=== PATIENT | male | born 1965 | race Caucasian/White ===

== ENCOUNTER → 2018-04-19 | Outpatient (CLI) | payer OTHER | LOC: RAD 14:01 | DX: E04.2 Nontoxic multinodular goiter (principal) ==

== ENCOUNTER 2020-07-11 13:03 | Outpatient (RCR) | payer MEDICAID | END 2020-10-09 | disposition still patient (30) | LOC: PT | DX: S83.241D Other tear of medial meniscus, current injury, right knee, subsequent encounter (principal) ==

== ENCOUNTER → 2020-11-12 | Outpatient (CLI) | payer MEDICAID ==
[2020-11-12 18:23] LABS: BASO # 0.07 (0.02-0.10); EOS # 0.24 (0.04-0.40); EOS % 2.4 % (0.0-4.0); HEMATOCRIT 48.9 % (42.0-52.0); HEMOGLOBIN 16.7 g/dL (13.5-18.0); LYMPH# 2.44 (1.50-4.00); MEAN CELL VOLUME 88 fl (78-100); MEAN CORPUSCULAR HEMOGLOBIN 30 pg (27-31); MEAN CORPUSCULAR HGB CONC 34 g/dL (33-37); MEAN PLATELET VOLUME 11.1 fl (7.4-10.4); MONO # 0.65 (0.20-0.80); NEU # 6.66 (1.40-6.50); PLATELET COUNT 346 K/mm3 (130-400); RED BLOOD COUNT 5.59 M/mm3 (4.20-5.60); RED CELL DISTRIBUTION WIDTH 12.9 % (11.5-14.5); WHITE BLOOD COUNT 10.1 K/mm3 (4.8-10.8)
[2020-11-12 18:30] LABS: URINE WBC 0 /hpf (0-3)
[2020-11-12 18:42] LABS: ALBUMIN 4.3 g/dL (3.5-5.0); POTASSIUM 4.4 mmol/L (3.5-5.1)
[2020-11-12 18:44] LABS: TOTAL PROTEIN 7.6 g/dL (6.4-8.3)
[2020-11-12 18:46] LABS: TOTAL BILIRUBIN 0.6 mg/dL (0.2-1.2)
[2020-11-12 18:51] LABS: MAGNESIUM 1.83 mg/dL (1.60-2.60)
[2020-11-12 19:21] LABS: URINE APPEARANCE CLEAR; URINE BILIRUBIN 1+ (NEGATIVE); URINE COLOR YELLOW; URINE KETONE 1+ (NEGATIVE); URINE PROTEIN(semi-quant) 2+ mg/dL (NEGATIVE); URINE UROBILINOGEN NORMAL (NORMAL)
[2020-11-12 19:22] LABS: URINE BLOOD TRACE (NEGATIVE); URINE LEUKOCYTE ESTERASE NEGATIVE (NEGATIVE); URINE MUCUS PRESENT (NOT PRESENT); URINE NITRATE NEGATIVE (NEGATIVE)
[2020-11-12 20:08] LABS: ERYTHROCYTE SEDIMENTATION RATE 12 mm/hr (0-20)
[2020-11-13 17:00] LABS: TESTOSTERONE 455 ng/dL (221-716)
== END ==
LOC: LAB 18:00
PROVIDERS: Internal Medicine
DX: Z12.5 Encounter for screening for malignant neoplasm of prostate (principal); E04.1 Nontoxic single thyroid nodule; E11.8 Type 2 diabetes mellitus with unspecified complications; K90.9 Intestinal malabsorption, unspecified; N52.9 Male erectile dysfunction, unspecified

== ENCOUNTER → 2020-12-10 | Outpatient (CLI) | payer MEDICAID | LOC: RAD 12-05 07:00 | DX: M54.16 Radiculopathy, lumbar region (principal); M79.651 Pain in right thigh ==

== ENCOUNTER → 2021-04-10 | Outpatient (CLI) | payer MEDICAID ==
[2021-04-10 10:58] LABS: BASO # 0.07 K/mm3 (0.02-0.10); EOS # 0.25 K/mm3 (0.04-0.40); EOS % 2.8 % (0.0-4.0); HEMATOCRIT 51.2 % (42.0-52.0); HEMOGLOBIN 17.4 g/dL (13.5-18.0); LYMPH# 2.61 K/mm3 (1.50-4.00); MEAN CELL VOLUME 88 fl (78-100); MEAN CORPUSCULAR HEMOGLOBIN 30 pg (27-31); MEAN CORPUSCULAR HGB CONC 34 g/dL (33-37); MEAN PLATELET VOLUME 11.6 fl (7.4-10.4); MONO # 0.68 K/mm3 (0.20-0.80); NEU # 5.21 K/mm3 (1.40-6.50); PLATELET COUNT 345 K/mm3 (130-400); RED BLOOD COUNT 5.81 M/mm3 (4.20-5.60); RED CELL DISTRIBUTION WIDTH 12.6 % (11.5-14.5); WHITE BLOOD COUNT 8.9 K/mm3 (4.8-10.8)
[2021-04-10 11:04] LABS: ALBUMIN 4.4 g/dL (3.5-5.0)
[2021-04-10 11:05] LABS: POTASSIUM 4.6 mmol/L (3.5-5.1)
[2021-04-10 11:06] LABS: CALCIUM 9.3 mg/dL (8.3-10.5)
[2021-04-10 11:07] LABS: TOTAL PROTEIN 7.6 g/dL (6.4-8.3)
[2021-04-10 11:09] LABS: TOTAL BILIRUBIN 0.7 mg/dL (0.2-1.2)
== END ==
LOC: LAB 10:31
PROVIDERS: Internal Medicine
DX: K90.9 Intestinal malabsorption, unspecified (principal); I10 Essential (primary) hypertension; E04.1 Nontoxic single thyroid nodule

== ENCOUNTER → 2021-04-18 | Outpatient (CLI) | payer MEDICAID | LOC: RAD 09:37 | DX: I70.203 Unspecified atherosclerosis of native arteries of extremities, bilateral legs (principal); I77.1 Stricture of artery; Z89.519 Acquired absence of unspecified leg below knee | CPT/HCPCS: Q9967 ==

== ENCOUNTER → 2021-06-20 | Outpatient (CLI) | payer MEDICAID | LOC: CARDREHAB 10:54 | DX: R06.00 Dyspnea, unspecified (principal) | CPT/HCPCS: A9500 ==

== ENCOUNTER → 2021-06-27 | Outpatient (CLI) | payer MEDICAID | LOC: VAS 14:40 | DX: I25.10 Atherosclerotic heart disease of native coronary artery without angina pectoris (principal) ==

== ENCOUNTER → 2021-08-13 | Outpatient (CLI) | payer MEDICAID | LOC: LAB 13:06 | DX: I10 Essential (primary) hypertension (principal); E11.9 Type 2 diabetes mellitus without complications; G62.9 Polyneuropathy, unspecified; E04.1 Nontoxic single thyroid nodule; K90.9 Intestinal malabsorption, unspecified; L97.909 Non-pressure chronic ulcer of unspecified part of unspecified lower leg with unspecified severity; I73.9 Peripheral vascular disease, unspecified; I25.10 Atherosclerotic heart disease of native coronary artery without angina pectoris; Z89.519 Acquired absence of unspecified leg below knee ==

== ENCOUNTER 2021-08-20 11:01 | Outpatient (RCR) | payer MEDICAID | END 2021-08-30 | disposition still patient (30) | LOC: PT | DX: Z89.519 Acquired absence of unspecified leg below knee (principal) ==

== ENCOUNTER 2021-09-01 15:00 | Outpatient (RCR) | payer MEDICAID | END 2021-09-30 | disposition still patient (30) | LOC: PT | DX: Z89.519 Acquired absence of unspecified leg below knee (principal) ==

== ENCOUNTER → 2021-09-26 | Outpatient (CLI) | payer MEDICAID | LOC: RAD 08:08 | DX: M25.561 Pain in right knee (principal) ==

== ENCOUNTER 2021-10-01 14:44 | Outpatient (RCR) | payer MEDICAID | END 2021-10-30 | disposition still patient (30) | LOC: PT | DX: Z89.519 Acquired absence of unspecified leg below knee (principal) ==

== ENCOUNTER → 2021-10-01 | Outpatient (CLI) | payer MEDICAID | LOC: RAD 12:36 | DX: M22.41 Chondromalacia patellae, right knee (principal) ==

== ENCOUNTER → 2021-11-27 | Outpatient (CLI) | payer MEDICAID ==
[2021-11-27 13:35] LABS: BASO # 0.04 K/mm3 (0.02-0.10); EOS # 0.17 K/mm3 (0.04-0.40); EOS % 1.7 % (0.0-4.0); HEMATOCRIT 52.9 % (42.0-52.0); HEMOGLOBIN 17.4 g/dL (13.5-18.0); LYMPH# 2.41 K/mm3 (1.50-4.00); MEAN CELL VOLUME 86 fl (78-100); MEAN CORPUSCULAR HEMOGLOBIN 28 pg (27-31); MEAN CORPUSCULAR HGB CONC 33 g/dL (33-37); MEAN PLATELET VOLUME 12.2 fl (7.4-10.4); MONO # 0.59 K/mm3 (0.20-0.80); NEU # 6.58 K/mm3 (1.40-6.50); PLATELET COUNT 257 K/mm3 (130-400); RED BLOOD COUNT 6.17 M/mm3 (4.20-5.60); RED CELL DISTRIBUTION WIDTH 12.5 % (11.5-14.5); WHITE BLOOD COUNT 9.8 K/mm3 (4.8-10.8)
[2021-11-27 13:47] LABS: ALBUMIN 4.3 g/dL (3.5-5.0); POTASSIUM 4.6 mmol/L (3.5-5.1)
[2021-11-27 13:48] LABS: CALCIUM 9.4 mg/dL (8.3-10.5)
[2021-11-27 13:49] LABS: TOTAL PROTEIN 7.5 g/dL (6.4-8.3)
[2021-11-27 13:51] LABS: TOTAL BILIRUBIN 0.8 mg/dL (0.2-1.2)
== END ==
LOC: LAB 13:14
PROVIDERS: Internal Medicine
DX: E11.9 Type 2 diabetes mellitus without complications (principal); I25.10 Atherosclerotic heart disease of native coronary artery without angina pectoris; K90.9 Intestinal malabsorption, unspecified

== ENCOUNTER → 2022-03-09 | Outpatient (CLI) | payer MEDICAID | LOC: RAD 09:32 | DX: M17.11 Unilateral primary osteoarthritis, right knee (principal); Z89.519 Acquired absence of unspecified leg below knee ==

== ENCOUNTER → 2022-07-01 | Outpatient (CLI) | payer MEDICAID | LOC: RAD 13:03 | DX: M25.511 Pain in right shoulder (principal); M79.604 Pain in right leg; I10 Essential (primary) hypertension; I25.10 Atherosclerotic heart disease of native coronary artery without angina pectoris; E11.9 Type 2 diabetes mellitus without complications; K90.9 Intestinal malabsorption, unspecified; Z89.511 Acquired absence of right leg below knee ==

== ENCOUNTER 2023-01-16 06:49 | Observation (INO) | payer MEDICAID ==
[~2023-01-16] VITALS: Ht 185.4 cm; Wt 120.5 kg
[2023-01-16] MEDS ORDERED: PREGABALIN200 MG PO (06:58)
[2023-01-16] MEDS ORDERED: TRULICITY1.5 MG/0.5 SC (06:58)
[2023-01-16] MEDS ORDERED: TRAMADOL 50 MG TAB PO (06:58)
[2023-01-16] MEDS ORDERED: HYDROCHLOROTHIA1 T14 PO (06:58)
[2023-01-16] MEDS ORDERED: METFORMIN ER500 MG (06:59)
[2023-01-16] MEDS ORDERED: ROSUVASTATIN CA20 MG PO (06:59)
[2023-01-16] MEDS ORDERED: VITAMIN D21250 MCG PO (07:00)
[2023-01-16] MEDS ORDERED: GLIPIZIDE10 M2 PO (07:00)
[2023-01-16 08:05] LABS: BASO # 0.04 K/mm3 (0.02-0.10); EOS # 0.13 K/mm3 (0.04-0.40); EOS % 1.5 % (0.0-4.0); HEMOGLOBIN 14.9 g/dL (13.5-18.0); MEAN CELL VOLUME 87 fl (78-100); MEAN CORPUSCULAR HEMOGLOBIN 30 pg (27-31); MEAN CORPUSCULAR HGB CONC 35 g/dL (33-37); MEAN PLATELET VOLUME 11.6 fl (7.4-10.4); MONO # 0.62 K/mm3 (0.20-0.80); NEU # 5.64 K/mm3 (1.40-6.50); PLATELET COUNT 273 K/mm3 (130-400); RED BLOOD COUNT 4.96 M/mm3 (4.20-5.60); RED CELL DISTRIBUTION WIDTH 12.5 % (11.5-14.5); WHITE BLOOD COUNT 8.8 K/mm3 (4.8-10.8)
[2023-01-16 08:09] LABS: ALBUMIN 4.2 g/dL (3.5-5.0); POTASSIUM 4.2 mmol/L (3.5-5.1); SODIUM 137 mmol/L (136-145)
[2023-01-16 08:10] LABS: CALCIUM 9.5 mg/dL (8.3-10.5)
[2023-01-16 08:12] LABS: GLUCOSE 290 mg/dL (75-110); TOTAL PROTEIN 7.1 g/dL (6.4-8.3)
[2023-01-16 08:13] LABS: CARBON DIOXIDE 21 mmol/L (22-29)
[2023-01-16 08:14] LABS: TOTAL BILIRUBIN 0.9 mg/dL (0.2-1.2)
[2023-01-16 08:16] LABS: URINE APPEARANCE CLEAR; URINE BILIRUBIN NEGATIVE (NEGATIVE); URINE BLOOD NEGATIVE (NEGATIVE); URINE COLOR YELLOW; URINE KETONE 2+ (NEGATIVE); URINE LEUKOCYTE ESTERASE NEGATIVE (NEGATIVE); URINE NITRATE NEGATIVE (NEGATIVE); URINE PROTEIN(semi-quant) TRACE (NEGATIVE); URINE UROBILINOGEN NORMAL (NORMAL); URINE WBC 0-1 /hpf (0-3)
[2023-01-16 08:17] LABS: AST-SGOT 17 U/L (5-34)
[2023-01-16 08:17] LABS: URINE MUCUS PRESENT (NOT PRESENT)
[2023-01-16 08:18] LABS: ALT/SGPT 23 U/L (0-55)
[2023-01-16 08:19] LABS: LIPASE 366 U/L (8-78)
[2023-01-16 08:28] LABS: TROPONIN-I < 0.030 ng/mL (<0.030)
[2023-01-16 11:15] VITALS: BP 158/86
[2023-01-16 14:09] VITALS: BP 129/61
[2023-01-16 17:13] VITALS: BP 156/83
[2023-01-16 21:54] VITALS: BP 146/66
[2023-01-17 05:27] VITALS: BP 130/83
[2023-01-17] MEDS ORDERED: PRILOSEC 20MG20 MG PO (09:50)
[2023-01-17 10:09] VITALS: BP 104/63
== END 2023-01-17 10:10 | disposition home or self-care (01) ==
LOC: ED 06:49 → MED/SURG 11:07
PROVIDERS: ADMIT Family Medicine
DX: R10.13 Epigastric pain (principal); R11.10 Vomiting, unspecified; E11.9 Type 2 diabetes mellitus without complications; I10 Essential (primary) hypertension; E78.5 Hyperlipidemia, unspecified; I73.9 Peripheral vascular disease, unspecified; Z59.02 Unsheltered homelessness; Z89.511 Acquired absence of right leg below knee; Z79.899 Other long term (current) drug therapy; Z79.4 Long term (current) use of insulin
CPT/HCPCS: C9113; G0378; J1650; J7030; Q9967

== ENCOUNTER → 2023-02-12 | Outpatient (CLI) | payer MEDICAID ==
[~2023-02-12] MED LIST: GLIPIZIDE10 M2 PO; HYDROCHLOROTHIA1 T14 PO; METFORMIN ER500 MG; PREGABALIN200 MG PO; PRILOSEC 20MG20 MG PO; ROSUVASTATIN CA20 MG PO; TRAMADOL 50 MG TAB PO; TRULICITY1.5 MG/0.5 SC; VITAMIN D21250 MCG PO
[2023-02-12 15:06] LABS: POTASSIUM 5.5 mmol/L (3.5-5.1)
[2023-02-12 15:07] LABS: CALCIUM 9.9 mg/dL (8.3-10.5)
== END ==
LOC: LAB 13:47
PROVIDERS: Internal Medicine
DX: E87.1 Hypo-osmolality and hyponatremia (principal)

== ENCOUNTER → 2023-03-31 | Outpatient (CLI) | payer MEDICAID | LOC: RAD 09:32 | DX: N32.89 Other specified disorders of bladder (principal); N28.1 Cyst of kidney, acquired; Z90.49 Acquired absence of other specified parts of digestive tract | CPT/HCPCS: Q9967 ==

== ENCOUNTER → 2023-04-01 | Outpatient (CLI) | payer MEDICAID ==
[2023-04-01 15:01] LABS: URINE APPEARANCE CLEAR; URINE BILIRUBIN NEGATIVE (NEGATIVE); URINE BLOOD TRACE (NEGATIVE); URINE COLOR YELLOW; URINE KETONE 2+ (NEGATIVE); URINE LEUKOCYTE ESTERASE NEGATIVE (NEGATIVE); URINE NITRATE NEGATIVE (NEGATIVE); URINE PROTEIN(semi-quant) TRACE (NEGATIVE); URINE UROBILINOGEN NORMAL (NORMAL)
[2023-04-01 15:02] LABS: URINE WBC 0-1 /hpf (0-3)
== END ==
LOC: LAB 13:26
PROVIDERS: Internal Medicine
DX: N39.0 Urinary tract infection, site not specified (principal)

== ENCOUNTER → 2023-12-31 | Outpatient (CLI) | payer MEDICAID ==
[2023-12-31 08:31] LABS: BASO # 0.05 K/mm3 (0.02-0.10); EOS % 4.5 % (0.0-4.0); HEMATOCRIT 40.9 % (42.0-52.0); HEMOGLOBIN 13.8 g/dL (13.5-18.0); LYMPH# 2.57 K/mm3 (1.50-4.00); MEAN CELL VOLUME 88 fl (78-100); MEAN CORPUSCULAR HEMOGLOBIN 30 pg (27-31); MEAN CORPUSCULAR HGB CONC 34 g/dL (33-37); MEAN PLATELET VOLUME 11.9 fl (7.4-10.4); MONO # 0.61 K/mm3 (0.20-0.80); NEU # 5.29 K/mm3 (1.40-6.50); PLATELET COUNT 268 K/mm3 (130-400); RED BLOOD COUNT 4.66 M/mm3 (4.20-5.60); RED CELL DISTRIBUTION WIDTH 13.2 % (11.5-14.5); WHITE BLOOD COUNT 8.9 K/mm3 (4.8-10.8)
[2023-12-31 08:39] LABS: ALBUMIN 4.1 g/dL (3.5-5.0)
[2023-12-31 08:40] LABS: CALCIUM 9.4 mg/dL (8.3-10.5)
[2023-12-31 08:41] LABS: TOTAL PROTEIN 7.2 g/dL (6.4-8.3)
[2023-12-31 08:43] LABS: TOTAL BILIRUBIN 0.7 mg/dL (0.2-1.2)
[2023-12-31 08:49] LABS: MAGNESIUM 1.84 mg/dL (1.60-2.60)
[2023-12-31 09:23] LABS: URINE APPEARANCE CLEAR (CLEAR); URINE COLOR YELLOW (YELLOW); URINE GLUCOSE TRACE (NEGATIVE); URINE KETONE NEGATIVE (NEGATIVE); URINE PROTEIN(semi-quant) NEGATIVE (NEGATIVE)
[2023-12-31 09:24] LABS: URINE BILIRUBIN NEGATIVE (NEGATIVE); URINE BLOOD NEGATIVE (NEGATIVE); URINE LEUKOCYTE ESTERASE NEGATIVE (NEGATIVE); URINE NITRATE NEGATIVE (NEGATIVE); URINE WBC 0-1 /hpf (0-3)
[2023-12-31 22:49] LABS: TESTOSTERONE 723 ng/dL (221-716)
== END ==
LOC: LAB 07:59
PROVIDERS: Internal Medicine
DX: Z12.5 Encounter for screening for malignant neoplasm of prostate (principal); I10 Essential (primary) hypertension; E11.9 Type 2 diabetes mellitus without complications; K90.9 Intestinal malabsorption, unspecified; E78.2 Mixed hyperlipidemia; F52.21 Male erectile disorder

== ENCOUNTER 2024-04-18 11:39 | Observation (INO) | payer MEDICAID ==
[~2024-04-18] VITALS: Ht 185.4 cm; Wt 106.0 kg
[~2024-04-18 11:39] MED LIST changes: +AMOXICILLIN AND1 TA2 PO; +DOCUSATE SOD100 MG PO; +GLUCOTROL 5M5 MG/TAB PO; +PANTOPRAZOLE SO40 MG PO
--- NOTE | 2024-04-23 14:30 | NUR ---
BOWEL PREP INSTRUCTIONS: 1500 TAKE 20MG DULCOLAX WITH 8oz OF CLEAR LIQUID 1800 MIX 64oz OF GATORADE WITH 238mg OF MIRALAX. DRINK 8oz EVERY 15 MINS UNTIL GONE. NPO AFTER MIDNIGHT, MAY TAKE BLOOD PRESSURE MEDICATIONS IN THE MORNING BEFORE PROCEDURE. HOLD ALL OTHER MEDS. PATIENT AWARE AND VERBALIZED UNDERSTANDING.
--- NOTE | 2024-04-23 14:30 | NUR ---
PATIENT ADMITTED OBSERVATION FOR BOWEL PREP PRIOR TO COLONOSCOPY ON 04/24/24. PATIENT IS A&Ox4, COOPERATIVE AT THIS TIME, INDEPENDENT WITH CARES. 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 PATIENT GIVEN STRICT INSTRUCTIONS ON BOWEL PREP, STATES UNDERSTANDING. PATIENT HAS ROOM PRIVILAGES PER PROVIDER. DENIES OTHER NEEDS OR COMPLAINTS AT THIS TIME. CALL LIGHT WITHIN REACH.
[2024-04-23 15:15] VITALS: BP 148/77
[2024-04-23] MEDS ORDERED: Bisacodyl 5 MG TAB PO ONE (15:15)
[2024-04-23] MEDS ORDERED: Polyethylene Glycol 3350 Powder 17 GM PACKET PO ONE (15:15)
[2024-04-23] MEDS ORDERED: traMADol 50 MG TAB PO PRN (15:30)
[2024-04-23] MEDS ORDERED: Bisacodyl 5 MG TAB PO SCH (16:00)
[2024-04-23 19:00] VITALS: BP 115/62; BP 149/80
--- NOTE | 2024-04-23 19:08 | NUR ---
REPORT GIVEN TO ALTAGRACIA RICH
[2024-04-23] MEDS ORDERED: Pregabalin 150 MG CAP PO ONE (20:15)
[2024-04-23] MEDS ORDERED: Pregabalin 150 MG CAP PO SCH (21:00)
[2024-04-24 08:26] VITALS: BP 149/81
[2024-04-24] MEDS ORDERED: hydroCHLOROthiazide 25 MG TAB PO SCH (09:00)
[2024-04-24] MEDS ORDERED: metFORMIN XR 500 MG TAB PO SCH (09:00)
[2024-04-24] MEDS ORDERED: Lisinopril 5 MG TAB PO SCH (09:00)
--- NOTE | 2024-04-24 10:50 | NUR ---
THIS NURSE TRANSPORTED PATIENT TO PRE-OP AT THIS TIME FOR PROCEDURE.
--- NOTE | 2024-04-24 11:12 | NUR ---
BLOOD SUGAR CHECKED PER ORDER FROM LICENSED RETAIL SUPERVISOR, RESULT [phone]
[2024-04-24] MEDS ORDERED: Lidocaine PF 2% (20 MG/ML) 2 ML VIAL ONE (11:27)
[2024-04-24 12:45] VITALS: BP 161/77
--- NOTE | 2024-04-24 12:45 | NUR ---
THIS NURSE RETURNED PATIENT TO ROOM 208 VIA WHEELCHAIR. VSS ON RA. REPORT GIVEN TO PÉREZ Cash RN. PER PROVIDER PATIENT MAY RETURN TO NORMAL DIET AND TAKE MEDICATIONS PRESCRIBED.
[2024-04-24] MEDS ORDERED: Pregabalin 150 MG CAP PO SCH (14:48)
[2024-04-24 19:00] VITALS: BP 143/70
--- NOTE | 2024-04-25 07:00 | NUR ---
REPORT RECEIVED FROM ALTAGRACIA RICH
[2024-04-25 07:30] VITALS: BP 132/79
--- NOTE | 2024-04-25 09:15 | NUR ---
PATIENT DISCHARGE INSTRUCTIONS REVIEWED, ALL QUESTIONS ANSWERED.
--- NOTE | 2024-04-25 09:40 | NUR ---
patient discharged via ambulation at this time.
== END 2024-04-25 09:40 | disposition home or self-care (01) ==
LOC: MED/SURG 04-23 14:09 → MSO 04-24 11:37 → EDSTATUS 04-24 14:08 → MED/SURG 04-25 09:40
PROVIDERS: ADMIT Internal Medicine
DX: K52.832 Lymphocytic colitis (principal); G89.29 Other chronic pain; R63.4 Abnormal weight loss; E66.9 Obesity, unspecified; E78.5 Hyperlipidemia, unspecified; I12.9 Hypertensive chronic kidney disease with stage 1 through stage 4 chronic kidney disease, or unspecified chronic kidney disease; E11.22 Type 2 diabetes mellitus with diabetic chronic kidney disease; N18.30 Chronic kidney disease, stage 3 unspecified; Z68.29 Body mass index [BMI] 29.0-29.9, adult; Z79.899 Other long term (current) drug therapy; Z79.84 Long term (current) use of oral hypoglycemic drugs
CPT/HCPCS: 00813; G0378; G0379; J2704; J7120

== ENCOUNTER → 2024-05-12 | Outpatient (CLI) | payer MEDICAID ==
[2024-05-12 15:21] LABS: BASO # 0.07 K/mm3 (0.02-0.10); EOS # 0.31 K/mm3 (0.04-0.40); EOS % 2.9 % (0.0-4.0); HEMATOCRIT 37.2 % (42.0-52.0); HEMOGLOBIN 12.3 g/dL (13.5-18.0); LYMPH# 1.56 K/mm3 (1.50-4.00); MEAN CELL VOLUME 88 fl (78-100); MEAN CORPUSCULAR HEMOGLOBIN 29 pg (27-31); MEAN CORPUSCULAR HGB CONC 33 g/dL (33-37); MEAN PLATELET VOLUME 12.2 fl (7.4-10.4); MONO # 0.51 K/mm3 (0.20-0.80); NEU # 8.04 K/mm3 (1.40-6.50); PLATELET COUNT 272 K/mm3 (130-400); RED BLOOD COUNT 4.22 M/mm3 (4.20-5.60); WHITE BLOOD COUNT 10.5 K/mm3 (4.8-10.8)
[2024-05-12 15:26] LABS: ALBUMIN 3.9 g/dL (3.5-5.0)
[2024-05-12 15:27] LABS: CALCIUM 9.2 mg/dL (8.3-10.5)
[2024-05-12 15:28] LABS: TOTAL PROTEIN 7.4 g/dL (6.4-8.3)
[2024-05-12 15:30] LABS: TOTAL BILIRUBIN 0.7 mg/dL (0.2-1.2)
[2024-05-12 15:35] LABS: MAGNESIUM 1.71 mg/dL (1.60-2.60)
[2024-05-12 17:21] LABS: PH-URINE 5.5 (5.0 - 8.0); URINE APPEARANCE TURBID (CLEAR); URINE BILIRUBIN NEGATIVE (NEGATIVE); URINE COLOR YELLOW (YELLOW); URINE GLUCOSE TRACE (NEGATIVE); URINE KETONE NEGATIVE (NEGATIVE); URINE NITRATE NEGATIVE (NEGATIVE); URINE PROTEIN(semi-quant) 1+ (NEGATIVE)
[2024-05-12 17:22] LABS: URINE BLOOD 1+ (NEGATIVE); URINE LEUKOCYTE ESTERASE 2+ (NEGATIVE); URINE WBC >50 /hpf (0-3)
[2024-05-12 23:09] LABS: FOLATE (FOLIC ACID) 10.2 ng/mL (2.0-20.0)
== END ==
LOC: LAB 14:37
PROVIDERS: Internal Medicine
DX: I10 Essential (primary) hypertension (principal); E11.9 Type 2 diabetes mellitus without complications; E78.2 Mixed hyperlipidemia; K90.9 Intestinal malabsorption, unspecified

== ENCOUNTER → 2024-06-02 | Outpatient (CLI) | payer MEDICAID | LOC: RAD 08:45 | DX: N32.89 Other specified disorders of bladder (principal); N18.30 Chronic kidney disease, stage 3 unspecified ==